=== PATIENT | male | born 1965 | race American Indian/Alaskan Native ===

== ENCOUNTER 2025-04-26 06:00 | Day surgery (SDC) | payer OTHER ==
[~2025-04-26 06:00] MED LIST: EPINEPHRINE PRN; KETOROLAC PRN; SODIUM CHLORIDE 0.9% PRN; Sodium Chloride 0.9% 10 ML Syringe FLUSH PRN; Sodium Chloride 0.9% 10 ML Syringe FLUSH SCH; oxyCODONE ER 10 MG TAB.ER PO ONE
[2025-04-26] MEDS ORDERED: oxyCODONE ER 10 MG TAB.ER PO ONE (06:02)
[2025-04-26] MEDS: Clindamycin Phosphate in D5W 900 MG in Premix Bag 1 BAG IV ONE (06:45)
[2025-04-26] MEDS ORDERED: fentaNYL 100 MCG/2 ML SDV ONE (06:48)
[2025-04-26] MEDS ORDERED: Midazolam 1 MG/ML 2 ML SDV ONE (06:49)
[2025-04-26] MEDS ORDERED: propofoL 500 MG/50 ML 50 ML ONE (06:51)
[2025-04-26] MEDS: Lactated Ringers 1,000 ML IV SCH (07:00)
[2025-04-26] MEDS ORDERED: Ondansetron 4 MG/2 ML SDV IVPUSH PRN (07:21)
[2025-04-26] MEDS ORDERED: fentaNYL 100 MCG/2 ML SDV IVPUSH PRN (07:21)
[2025-04-26] MEDS ORDERED: ePHEDrine 50 MG/ML SDV ONE (07:26)
[2025-04-26] MEDS ORDERED: Lactated Ringers 1,000 ML ONE (07:32)
[2025-04-26] MEDS: Morphine 8 MG, EPINEPHrine 0.3 MG, Cefuroxime 750 MG, Ketorolac 30 MG, Sodium Chloride ... PRN (07:55)
== END 2025-04-26 13:30 | disposition home or self-care (01) ==
LOC: JD.SDS 06:00
PROVIDERS: ATTEND Orthopaedic Surgery
DX: M87.051 Idiopathic aseptic necrosis of right femur (principal); J45.909 Unspecified asthma, uncomplicated; I25.10 Atherosclerotic heart disease of native coronary artery without angina pectoris; F41.9 Anxiety disorder, unspecified; Z88.5 Allergy status to narcotic agent; Z88.8 Allergy status to other drugs, medicaments and biological substances; Z88.0 Allergy status to penicillin; Z87.891 Personal history of nicotine dependence; Z79.899 Other long term (current) drug therapy
CPT/HCPCS: 0055T; 27130; 73501; 97116; 97161; A9270; C1713; C1776; J0169; J0697; J0736; J1885; J2250; J2272; J2704; J3010; J3373; J7120; 01214; J3490